=== PATIENT | female | born 1985 | race Caucasian/White ===

== ENCOUNTER 2020-06-06 07:25 | Emergency (ER) | payer OTHER ==
[~2020-06-06] VITALS: Ht 157.5 cm; Wt 72.7 kg
[2020-06-06] MEDS ORDERED: FEXO1TAB5 PO (07:33)
[2020-06-06] MEDS ORDERED: PRAZ1 PO (07:33)
[2020-06-06] MEDS ORDERED: FLUO-191 PO (07:33)
[2020-06-06] MEDS ORDERED: TRAZ-257 PO (07:33)
[2020-06-06] MEDS ORDERED: birth control pills PO (07:33)
[2020-06-06] MEDS ORDERED: PredniSONE 20 MG TABLET PO ONE (07:45)
[2020-06-06] MEDS ORDERED: DiphenhydrAMINE HCL 50 MG CAPSULE PO ONE (07:45)
[2020-06-06 08:56] VITALS: BP 111/72
== END 2020-06-06 09:08 | disposition home or self-care (01) ==
LOC: EMS 07:29
DX: T78.40XA Allergy, unspecified, initial encounter (principal); R22.0 Localized swelling, mass and lump, head; X58.XXXA Exposure to other specified factors, initial encounter
CPT/HCPCS: 99283; J7512

== ENCOUNTER 2020-06-26 06:47 | Emergency (ER) | payer OTHER ==
[~2020-06-26] VITALS: Ht 157.5 cm; Wt 72.7 kg
[~2020-06-26 06:47] MED LIST: FEXO1TAB5 PO; FLUO-191 PO; PRAZ1 PO; TRAZ-257 PO; birth control pills PO
[2020-06-26] MEDS ORDERED: DiphenhydrAMINE HCL 50 MG CAPSULE PO ONE (07:15)
[2020-06-26] MEDS ORDERED: PredniSONE 20 MG TABLET PO ONE (07:15)
[2020-06-26] MEDS ORDERED: FAMOTIDINE 20 MG TABLET PO ONE (07:15)
[2020-06-26 09:15] VITALS: BP 137/71
== END 2020-06-26 09:31 | disposition home or self-care (01) ==
LOC: EMS 06:48
DX: T78.40XA Allergy, unspecified, initial encounter (principal); X58.XXXA Exposure to other specified factors, initial encounter
CPT/HCPCS: 99284; J7512

== ENCOUNTER 2023-09-26 07:22 | Emergency (ER) | payer OTHER ==
[~2023-09-26] VITALS: Ht 157.5 cm; Wt 72.7 kg
[~2023-09-26 07:22] MED LIST changes: +FLUO-177 PO; -FLUO-191 PO
[2023-09-26 07:25] VITALS: TEMP 98.1
[2023-09-26] MEDS ORDERED: FEXO-353 PO (07:32)
[2023-09-26] MEDS ORDERED: EPIN0.3P19 IM (07:32)
[2023-09-26] MEDS ORDERED: FLUO-418 PO (07:32)
[2023-09-26] MEDS ORDERED: [UNRECOGNIZED DRUG - CODE] PO (07:32)
[2023-09-26] MEDS ORDERED: PROP10TA72 PO (07:32)
[2023-09-26] MEDS ORDERED: HYDR-4584 PO (07:32)
[2023-09-26] MEDS: FAMOTIDINE 20 MG TABLET PO ONE (08:38)
[2023-09-26] MEDS: PredniSONE 20 MG TABLET PO ONE (08:38)
[2023-09-26] MEDS: DiphenhydrAMINE HCL 25 MG CAPSULE PO ONE (08:39)
[2023-09-26] MEDS ORDERED: DIPH-1243 PO (08:44)
[2023-09-26] MEDS ORDERED: PRED-554 PO (08:44)
[2023-09-26 09:17] VITALS: BP 156/82; PULSE 90; RESP 16
== END 2023-09-26 09:17 | disposition home or self-care (01) ==
LOC: EMS 07:22
DX: T78.40XA Allergy, unspecified, initial encounter (principal); F41.9 Anxiety disorder, unspecified; F32.A Depression, unspecified; Z98.890 Other specified postprocedural states; X58.XXXA Exposure to other specified factors, initial encounter
CPT/HCPCS: 99284; J7512

== ENCOUNTER 2024-02-04 10:30 | Emergency (ER) | payer OTHER ==
[~2024-02-04] VITALS: Ht 157.5 cm; Wt 81.8 kg
[~2024-02-04 10:30] MED LIST changes: +DIPH-1243 PO; +EPIN0.3P19 IM; +FEXO-353 PO; -FEXO1TAB5 PO; -FLUO-177 PO; +FLUO-418 PO; +HYDR-4584 PO; -PRAZ1 PO; +PRED-554 PO; +PROP10TA72 PO; -TRAZ-257 PO; +[UNRECOGNIZED DRUG - CODE] PO; -birth control pills PO
[2024-02-04] MEDS ORDERED: PROP10TA73 PO (10:45)
[2024-02-04 10:47] VITALS: TEMP 98
[2024-02-04] MEDS: SUMAtriptan SUCCINATE 25 MG TABLET PO ONE (11:15)
[2024-02-04] MEDS: ONDANSETRON 4 MG TABLET PO ONE (11:15)
[2024-02-04] MEDS ORDERED: SUMA25TA15 PO (12:46)
[2024-02-04 12:58] VITALS: BP 148/85; PULSE 85; RESP 14; O2SAT 98
== END 2024-02-04 12:59 | disposition home or self-care (01) ==
LOC: EMS 10:30
DX: G43.909 Migraine, unspecified, not intractable, without status migrainosus (principal); F41.9 Anxiety disorder, unspecified; F32.A Depression, unspecified; F43.10 Post-traumatic stress disorder, unspecified; Z88.8 Allergy status to other drugs, medicaments and biological substances; Z79.3 Long term (current) use of hormonal contraceptives; Z79.899 Other long term (current) drug therapy
CPT/HCPCS: 99283; Q0162